=== PATIENT | female | born 1970 | race Caucasian/White ===

== ENCOUNTER → 2016-05-16 | Outpatient (CLI) | payer BC ==
--- NOTE | 2016-05-17 14:49 | MM ---
Reason for exam: screening (asymptomatic). Last mammogram was performed 1 year and 5 months ago. History: Patient is postmenopausal. Took hormonal contraceptives for 2 years beginning at age 37. Physical Findings: A clinical breast exam by your physician is recommended on an annual basis and results should be correlated with mammographic findings. MG Screening Mammo w CAD Bilateral CC and MLO view(s) were taken. Prior study comparison: December 08, 2014, left breast MG 3d work up w/cad LT. December 01, 2014, bilateral MG foundation screening mammo. September 13, 2012, bilateral digital screening mammo w/CAD. May 19, 2011, bilateral digital screening mammo w/CAD. There are scattered fibroglandular densities. Asymmetric breast tissue greater in the left breast. Focal asymmetry in the left upper outer quadrant increased from 2014, 2012 and 2011. ASSESSMENT: Incomplete: need additional imaging evaluation, BI-RAD 0 RECOMMENDATION: Breast MRI of the left breast. (consider breast MRI) Follow-up diagnostic mammogram of the left breast in 6 months. FROILAN
== END | disposition home or self-care (01) ==
LOC: RADMAMWWP 11:22
PROVIDERS: ATTEND Family Medicine
DX: Z12.31 Encounter for screening mammogram for malignant neoplasm of breast (principal)

== ENCOUNTER → 2016-06-06 | Outpatient (CLI) | payer BC ==
--- NOTE | 2016-06-07 09:03 | BMR ---
EXAMINATION TYPE: MR breast BILAT wo/w con DATE OF EXAM: 06/06/2016 1:11 PM COMPARISON: Screening mammogram May 16, 2016 BI-RADS 0 and older mammograms. Targeted Left breast ul trasound December 08, 2014 HISTORY: Abnormal Mammo CONTRAST: Multiplanar, multisequence images of the breasts were acquired utilizing 15 mL intravenous MultiHance gadolinium contrast. TECHNIQUE: A series of fat and water weighted images in the long and short axis views of both breasts are obtained in conjunction with dynamic contrast MRI with subtraction technique. Three-dimensional and additional postprocessing imaging is created on independent workstation and reviewed during offi cial interpretation of this study. FINDINGS: There is heterogeneously dense symmetric fibroglandular tissue in the subareolar region mariella aterally. There is asymmetrically prominent fibroglandular tissue in the upper aspect of left breast confirmed. Symmetric minimal background enhancement is noted. T1-weighted images show no suspicious fat containing lesions. Dynamic postcontrast images show no pat hologic enhancement. No suspicious enhancing masses are evident bilaterally with particular attention to the area of mammographic concern upper aspect left breast. Findings correlate with ultrasound fro 2014. No suspicious skin thickening is seen bilaterally. The chest wall is intact. No concerning internal m ammary or axillary adenopathy is present. No suspicious findings are seen outside the breasts. IMPRESSION: No MRI evidence for invasive malignancy in either breast. BI-RADS 1 negative study. Recommendation: Return to routine follow-up, annual mammogram in May 2017.
== END | disposition home or self-care (01) ==
LOC: RADMRIMAIN 11:32
PROVIDERS: ATTEND Nurse Practitioner
DX: R92.8 Other abnormal and inconclusive findings on diagnostic imaging of breast (principal)
CPT/HCPCS: 77059; 0159T; A9577

== ENCOUNTER → 2017-06-26 | Outpatient (CLI) | payer BC ==
--- NOTE | 2017-06-26 10:18 | US ---
EXAMINATION TYPE: US abdomen limited DATE OF EXAM: 06/26/2017 COMPARISON: NONE CLINICAL HISTORY: Umbilical Hernia w/o obstruction K42.9. Assess for hernia at location of: umbilicus There appears to be a umbilical hernia. Technologist reports bowel with peristalsis at the site of pa tient's symptomatology superior to the umbilicus. This approaches the skin level. Real-time scanning was performed by the meter and service line inspector utilizing Valsalva and additional dynamic maneuve rs to assess for hernia. IMPRESSION: Findings suggest umbilical hernia. CT scan may be confirmatory.
== END | disposition home or self-care (01) ==
LOC: RADUSWWP 08:20
PROVIDERS: ATTEND Family Medicine
DX: K42.9 Umbilical hernia without obstruction or gangrene (principal)
CPT/HCPCS: 76705

== ENCOUNTER → 2017-09-25 | Outpatient (CLI) | payer BC ==
--- NOTE | 2017-10-02 11:59 | MM ---
Reason for exam: screening (asymptomatic). Last mammogram was performed 1 year and 4 months ago. History: Patient is postmenopausal. Took hormonal contraceptives for 2 years beginning at age 37. Physical Findings: A clinical breast exam by your physician is recommended on an annual basis and results should be correlated with mammographic findings. MG Screening Mammo w CAD Bilateral CC and MLO view(s) were taken. XCCL view(s) were taken of the right breast. Prior study comparison: May 16, 2016, bilateral MG screening mammo w CAD. December 08, 2014, left breast MG 3d work up w/cad LT. The breast tissue is heterogeneously dense. This may lower the sensitivity of mammography. There is no discrete abnormality. No significant changes when compared with prior studies. ASSESSMENT: Negative, BI-RAD 1 RECOMMENDATION: Routine screening mammogram of both breasts in 1 year.
== END | disposition home or self-care (01) ==
LOC: RADMAMWWP 14:43
PROVIDERS: ATTEND Family Medicine
DX: Z12.31 Encounter for screening mammogram for malignant neoplasm of breast (principal)
CPT/HCPCS: 77067